=== PATIENT | male | born 1955 | race Caucasian/White ===

== ENCOUNTER 2022-05-01 05:55 | Inpatient (IN) ==
[2022-05-01] MEDS ORDERED: HEPARIN 5,000 UNIT/1 ML VIAL IV ONE (06:14)
[2022-05-01] MEDS ORDERED: MORPHINE 2 MG/1 ML SYRINGE IV STA ×2 (06:14→07:18)
[2022-05-01] MEDS ORDERED: ASPIRIN 325 MG TABLET PO STA (06:14)
[2022-05-01 06:26] LABS: Basophils # 0.1 10*3/uL (0.0-0.2); Basophils % 0.6 % (0.0-0.8); Eosinophils # 0.3 10*3/uL (0.0-0.87); Eosinophils % 3.5 % (0.00-10.9); Hematocrit 40.9 VOL% (42.0-52.0); Hemoglobin 13.9 GM/DL (14.0-18.0); Immature Granulocytes % 0.5 %; Immature Granulocytes Absolute 0.04 #; Lymphocytes # 2.3 10*3/uL (1.4-4.0); Lymphocytes % 26.5 % (21.2-54.2); Mean Corpuscular Volume 95.6 FL (87-102); Mean Platelet Volume 10.7 FL (9.6-12.0); Monocytes # 0.5 10*3/uL (0.11-0.8); Monocytes % 5.9 % (1.7-12.7); Platelet Count 168 T/CUMM (130-400); Red Blood Count 4.28 MC/CUMM (3.8-5.5); Red Cell Distribution Width 15.1 % (9.3-17.3); White Blood Count 8.6 T/CUMM (4-12)
[2022-05-01] MEDS ORDERED: HEPARIN 1,000 UNIT/1 ML VIAL IV STA (06:27)
[2022-05-01] MEDS: NITROGLYCERIN SL 0.4 MG TABLET SL PRN ×2 (06:31→06:44)
[2022-05-01 06:47] LABS: Osmolality,Calculated 275.8 MOS/KG (273-304); Potassium 3.3 MMOL/L (3.5-5.1)
[2022-05-01] MEDS ORDERED: MAGNESIUM SULF RIDER 2 GM/50 ML PREMIX IV ONE (10:40)
[2022-05-01] MEDS ORDERED: POTASSIUM CHLORIDE 20 MEQ TABLET PO ONE (10:42)
[2022-05-01] MEDS ORDERED: MORPHINE 2 MG/1 ML SYRINGE IV PRN (10:42)
[2022-05-01] MEDS ORDERED: DEXTROSE 10% 250 ML BAG IV PRN (10:42)
[2022-05-01] MEDS ORDERED: ONDANSETRON 4 MG/2 ML VIAL IV PRN (10:42)
[2022-05-01] MEDS ORDERED: GLUCAGON 1 MG VIAL IM PRN (10:42)
[2022-05-01] MEDS ORDERED: ATORVASTATIN 40 MG TABLET PO STA (10:48)
[2022-05-01] MEDS: ALBUTEROL/IPRATROPIUM 3 ML NEB RESP TX SCH ×2 (16:23→19:37)
[2022-05-01] MEDS: SACUBITRIL/VALSARTAN 49-51 MG TABLET PO SCH ×2 (16:44→20:29)
[2022-05-01] MEDS: ISOSORBIDE MONONITRATE 30 MG TABLET PO SCH (16:44)
[2022-05-01] MEDS: carvediloL 6.25 MG TABLET PO SCH ×2 (16:44→20:30)
[2022-05-01] MEDS: SPIRONOLACTONE 25 MG TABLET PO SCH (16:44)
[2022-05-01] MEDS: GABAPENTIN 300 MG CAPSULE PO SCH ×2 (16:45→20:29)
[2022-05-01] MEDS: FINASTERIDE 5 MG TABLET PO SCH (20:29)
[2022-05-01] MEDS: DIVALPROEX 500 MG TABLET PO SCH (20:29)
[2022-05-01] MEDS: TAMSULOSIN 0.4 MG CAPSULE PO SCH (20:29)
[2022-05-02] MEDS: ALBUTEROL/IPRATROPIUM 3 ML NEB RESP TX SCH ×4 (00:01→19:25)
[2022-05-02 05:10] LABS: Basophils % 0.6 % (0.0-0.8); Eosinophils # 0.2 10*3/uL (0.0-0.87); Eosinophils % 3.3 % (0.00-10.9); Hematocrit 39.2 VOL% (42.0-52.0); Hemoglobin 12.8 GM/DL (14.0-18.0); Immature Granulocytes % 0.3 %; Immature Granulocytes Absolute 0.02 #; Lymphocytes # 2.4 10*3/uL (1.4-4.0); Lymphocytes % 37.6 % (21.2-54.2); Mean Corpuscular HGB Conc 32.7 GM/DL (32-36); Mean Corpuscular Volume 97.8 FL (87-102); Mean Platelet Volume 10.8 FL (9.6-12.0); Monocytes # 0.5 10*3/uL (0.11-0.8); Monocytes % 8.2 % (1.7-12.7); Platelet Count 159 T/CUMM (130-400); Red Blood Count 4.01 MC/CUMM (3.8-5.5); Red Cell Distribution Width 15.4 % (9.3-17.3); White Blood Count 6.3 T/CUMM (4-12)
[2022-05-02 05:27] LABS: Alanine Aminotransferase 28 U/L (16-61); Albumin 2.9 G/DL (3.4-5.0); Alkaline Phosphatase 39 U/L (45-117); Aspartate Amino Transferase 79 U/L (0-37); Bilirubin,Total < 0.39 MG/DL (0.20-1.00); Blood Urea Nitrogen 14 MG/DL (7-18); Calcium 9.3 MG/DL (8.5-10.1); Carbon Dioxide 29 MMOL/L (21-32); Chloride 108 MMOL/L (98-107); Glucose 138 MG/DL (74-106); Osmolality,Calculated 285.1 MOS/KG (273-304); Potassium 3.9 MMOL/L (3.5-5.1); Sodium 142 MMOL/L (136-145); Total Protein 6.2 G/DL (6.4-8.2)
[2022-05-02 05:34] LABS: Risk Ratio 5.77; VLDL Cholesterol 66.6 MG/DL
[2022-05-02] MEDS ORDERED: SODIUM CHLORIDE 0.9% 1,000 ML IV SCH (08:00)
[2022-05-02] MEDS ORDERED: diphenhydrAMINE CAP 50 MG CAPSULE PO ONE (09:00)
[2022-05-02] MEDS ORDERED: DIAZEPAM 5 MG TABLET PO ONE (09:00)
[2022-05-02] MEDS ORDERED: HEPARIN/NACL 0.9% 2 UNITS/ML 2,000 UNIT/1,000 ML BAG IV ONE (09:53)
[2022-05-02] MEDS ORDERED: NITROGLYCERIN DRIP 50 MG/250 ML BOTTLE IV ONE (09:53)
[2022-05-02] MEDS ORDERED: VERAPAMIL 5 MG/2 ML VIAL ONE (09:54)
[2022-05-02] MEDS: GABAPENTIN 300 MG CAPSULE PO SCH ×3 (10:02→20:48)
[2022-05-02] MEDS: ISOSORBIDE MONONITRATE 30 MG TABLET PO SCH (10:02)
[2022-05-02] MEDS: PANTOPRAZOLE 40 MG TABLET PO SCH (10:03)
[2022-05-02] MEDS ORDERED: MIDAZOLAM 2 MG/2 ML VIAL ONE (10:10)
[2022-05-02] MEDS ORDERED: HYDROmorphone 1 MG/1 ML SYRINGE ONE (10:10)
[2022-05-02] MEDS ORDERED: ENOXAPARIN 30 MG/0.3 ML SYRINGE ONE (10:32)
[2022-05-02] MEDS ORDERED: TIROFIBAN 5,000 MCG/100 ML PREMIX IV ONE (10:51)
[2022-05-02] MEDS ORDERED: TIROFIBAN 5,000 MCG/100 ML PREMIX IV SCH (10:52)
[2022-05-02] MEDS ORDERED: HEPARIN/NACL 0.9% 2 UNITS/ML 1,000 UNIT/500 ML BAG IV ONE (10:58)
[2022-05-02] MEDS ORDERED: TICAGRELOR 90 MG TABLET ONE (11:28)
[2022-05-02] MEDS: NITROGLYCERIN SL 0.4 MG TABLET SL PRN ×2 (12:34→12:42)
[2022-05-02] MEDS: SACUBITRIL/VALSARTAN 49-51 MG TABLET PO SCH ×2 (13:17→20:48)
[2022-05-02] MEDS: DULoxetine 30 MG CAPSULE PO SCH (13:17)
[2022-05-02] MEDS: carvediloL 6.25 MG TABLET PO SCH ×2 (13:17→20:48)
[2022-05-02] MEDS: DIVALPROEX 500 MG TABLET PO SCH ×2 (13:18→20:48)
[2022-05-02] MEDS: SPIRONOLACTONE 25 MG TABLET PO SCH (13:18)
[2022-05-02] MEDS: NON-FORMULARY MEDICATION (Fluticasone-Umeclidin-Vilanter [Trelegy Ellipta] 100-62.5-25 mcg INH SCH (13:19)
[2022-05-02] MEDS: NITROGLYCERIN 2% OINT 1 INCH/GM PACK TOP SCH ×2 (13:20→19:10)
[2022-05-02] MEDS ORDERED: ALBUTEROL/IPRATROPIUM 3 ML NEB RESP TX ONE (16:49)
[2022-05-02] MEDS: TAMSULOSIN 0.4 MG CAPSULE PO SCH (20:48)
[2022-05-02] MEDS: TICAGRELOR 90 MG TABLET PO SCH (20:48)
[2022-05-02] MEDS: FINASTERIDE 5 MG TABLET PO SCH (20:49)
[2022-05-02] MEDS: ACETAMINOPHEN 325 MG TABLET PO PRN (22:04)
[2022-05-03] MEDS: ALBUTEROL/IPRATROPIUM 3 ML NEB RESP TX SCH ×4 (00:15→19:35)
[2022-05-03] MEDS: NITROGLYCERIN 2% OINT 1 INCH/GM PACK TOP SCH ×3 (04:18→13:00)
[2022-05-03 05:24] LABS: Basophils % 0.4 % (0.0-0.8); Eosinophils # 0.1 10*3/uL (0.0-0.87); Hematocrit 36.9 VOL% (42.0-52.0); Hemoglobin 12.5 GM/DL (14.0-18.0); Immature Granulocytes % 0.2 %; Immature Granulocytes Absolute 0.02 #; Lymphocytes # 2.7 10*3/uL (1.4-4.0); Lymphocytes % 27.5 % (21.2-54.2); Mean Corpuscular HGB Conc 33.9 GM/DL (32-36); Mean Corpuscular Volume 97.9 FL (87-102); Monocytes # 0.8 10*3/uL (0.11-0.8); Monocytes % 8.3 % (1.7-12.7); Neutrophils % 62.6 % (38.7-73.9); Platelet Count 149 T/CUMM (130-400); Red Blood Count 3.77 MC/CUMM (3.8-5.5); Red Cell Distribution Width 15.3 % (9.3-17.3); White Blood Count 9.9 T/CUMM (4-12)
[2022-05-03 05:52] LABS: Albumin 2.9 G/DL (3.4-5.0); Bilirubin,Total 0.7 MG/DL (0.20-1.00); Osmolality,Calculated 280.3 MOS/KG (273-304); Potassium 3.7 MMOL/L (3.5-5.1); Total Protein 6.7 G/DL (6.4-8.2)
[2022-05-03] MEDS ORDERED: diphenhydrAMINE CAP 50 MG CAPSULE PO ONE (07:16)
[2022-05-03] MEDS ORDERED: POTASSIUM CHLORIDE RIDER 10 MEQ/100 ML PREMIX IV PRN (07:16)
[2022-05-03] MEDS ORDERED: MAGNESIUM SULF RIDER 2 GM/50 ML PREMIX IV PRN (07:16)
[2022-05-03] MEDS ORDERED: DIAZEPAM 5 MG TABLET PO ONE (07:16)
[2022-05-03] MEDS ORDERED: SODIUM CHLORIDE 0.65% NASAL SPRAY 45 ML BOTTLE BOTH NARES PRN (08:49)
[2022-05-03] MEDS: carvediloL 6.25 MG TABLET PO SCH ×2 (08:55→21:03)
[2022-05-03] MEDS: PANTOPRAZOLE 40 MG TABLET PO SCH (08:55)
[2022-05-03] MEDS: SPIRONOLACTONE 25 MG TABLET PO SCH (08:55)
[2022-05-03] MEDS: TICAGRELOR 90 MG TABLET PO SCH (08:55)
[2022-05-03] MEDS: DULoxetine 30 MG CAPSULE PO SCH (08:55)
[2022-05-03] MEDS: ASPIRIN EC 81 MG TABLET PO SCH (08:55)
[2022-05-03] MEDS: SACUBITRIL/VALSARTAN 49-51 MG TABLET PO SCH ×2 (08:55→21:03)
[2022-05-03] MEDS: DIVALPROEX 500 MG TABLET PO SCH ×2 (08:55→21:03)
[2022-05-03] MEDS: GABAPENTIN 300 MG CAPSULE PO SCH ×3 (08:55→21:03)
[2022-05-03] MEDS: NON-FORMULARY MEDICATION (Fluticasone-Umeclidin-Vilanter [Trelegy Ellipta] 100-62.5-25 mcg INH SCH (08:55)
[2022-05-03] MEDS ORDERED: HEPARIN/NACL 0.9% 2 UNITS/ML 2,000 UNIT/1,000 ML BAG IV ONE (10:52)
[2022-05-03] MEDS ORDERED: MIDAZOLAM 2 MG/2 ML VIAL ONE (12:19)
[2022-05-03] MEDS ORDERED: HYDROmorphone 1 MG/1 ML SYRINGE ONE ×2 (12:20→12:55)
[2022-05-03] MEDS ORDERED: ENOXAPARIN 30 MG/0.3 ML SYRINGE ONE (12:34)
[2022-05-03] MEDS ORDERED: TIROFIBAN 5,000 MCG/100 ML PREMIX IV ONE (12:51)
[2022-05-03] MEDS ORDERED: SODIUM CHLORIDE 0.9% 1,000 ML IV SCH (16:00)
[2022-05-03 17:02] LABS: Basophils % 0.4 % (0.0-0.8); Eosinophils # 0.1 10*3/uL (0.0-0.87); Eosinophils % 0.7 % (0.00-10.9); Hematocrit 37.5 VOL% (42.0-52.0); Hemoglobin 12.6 GM/DL (14.0-18.0); Immature Granulocytes % 0.2 %; Immature Granulocytes Absolute 0.02 #; Lymphocytes # 2.2 10*3/uL (1.4-4.0); Lymphocytes % 26.4 % (21.2-54.2); Mean Corpuscular HGB Conc 33.6 GM/DL (32-36); Mean Corpuscular Volume 97.4 FL (87-102); Mean Platelet Volume 10.4 FL (9.6-12.0); Monocytes # 0.5 10*3/uL (0.11-0.8); Monocytes % 5.9 % (1.7-12.7); Neutrophils % 66.4 % (38.7-73.9); Platelet Count 152 T/CUMM (130-400); Red Blood Count 3.85 MC/CUMM (3.8-5.5); Red Cell Distribution Width 15.5 % (9.3-17.3); White Blood Count 8.2 T/CUMM (4-12)
[2022-05-03] MEDS: CLOPIDOGREL 75 MG TABLET PO SCH (17:52)
[2022-05-03] MEDS: TAMSULOSIN 0.4 MG CAPSULE PO SCH (21:03)
[2022-05-03] MEDS: FINASTERIDE 5 MG TABLET PO SCH (21:03)
[2022-05-03] MEDS: ACETAMINOPHEN 325 MG TABLET PO PRN (23:55)
[2022-05-04] MEDS: ALBUTEROL/IPRATROPIUM 3 ML NEB RESP TX SCH ×2 (00:21→06:47)
[2022-05-04 06:20] LABS: Basophils % 0.4 % (0.0-0.8); Eosinophils # 0.1 10*3/uL (0.0-0.87); Eosinophils % 1.7 % (0.00-10.9); Hematocrit 37.3 VOL% (42.0-52.0); Hemoglobin 12.3 GM/DL (14.0-18.0); Immature Granulocytes % 0.5 %; Immature Granulocytes Absolute 0.04 #; Lymphocytes # 2.7 10*3/uL (1.4-4.0); Lymphocytes % 31.5 % (21.2-54.2); Mean Corpuscular Volume 99.2 FL (87-102); Mean Platelet Volume 10.5 FL (9.6-12.0); Monocytes # 0.9 10*3/uL (0.11-0.8); Monocytes % 10.7 % (1.7-12.7); Neutrophils % 55.2 % (38.7-73.9); Platelet Count 146 T/CUMM (130-400); Red Blood Count 3.76 MC/CUMM (3.8-5.5); Red Cell Distribution Width 15.6 % (9.3-17.3); White Blood Count 8.5 T/CUMM (4-12)
[2022-05-04 06:47] LABS: Albumin 2.6 G/DL (3.4-5.0); Bilirubin,Total 0.7 MG/DL (0.20-1.00); Calcium 8.9 MG/DL (8.5-10.1); Osmolality,Calculated 282.3 MOS/KG (273-304); Total Protein 6.6 G/DL (6.4-8.2)
[2022-05-04] MEDS ORDERED: CLOPIDOGREL 75 MG TABLET PO SCH (09:00)
[2022-05-04] MEDS: SPIRONOLACTONE 25 MG TABLET PO SCH (09:30)
[2022-05-04] MEDS: carvediloL 6.25 MG TABLET PO SCH (09:30)
[2022-05-04] MEDS: DULoxetine 30 MG CAPSULE PO SCH (09:30)
[2022-05-04] MEDS: GABAPENTIN 300 MG CAPSULE PO SCH (09:30)
[2022-05-04] MEDS: SACUBITRIL/VALSARTAN 49-51 MG TABLET PO SCH (09:30)
[2022-05-04] MEDS: PANTOPRAZOLE 40 MG TABLET PO SCH (09:31)
[2022-05-04] MEDS: DIVALPROEX 500 MG TABLET PO SCH (09:31)
[2022-05-04] MEDS: ASPIRIN EC 81 MG TABLET PO SCH (09:31)
[2022-05-04] MEDS: CLOPIDOGREL 75 MG TABLET PO SCH (09:31)
[2022-05-04] MEDS: NON-FORMULARY MEDICATION (Fluticasone-Umeclidin-Vilanter [Trelegy Ellipta] 100-62.5-25 mcg INH SCH (09:40)
[2022-05-04 11:52] VITALS: BP 101/62
== END 2022-05-04 13:59 | disposition home or self-care (01) | DRG 246 ==
LOC: N.ED 05:55 → N.EDINP 10:42 → SUATTDRO 10:42 → N.TELES 11:40
PROVIDERS: ADMIT Family Medicine; ATTEND Hospitalist